=== PATIENT | female | born 1955 | race Caucasian/White ===

== ENCOUNTER → 2018-05-23 | Outpatient (CLI) | payer BC ==
[2018-05-23 18:58] LABS: THYROID STIMULATING HORMONE 1.94 uIU/mL (0.465-4.680)
== END ==
LOC: ZCOL.LAB 18:05
PROVIDERS: Family Medicine
DX: L65.9 Nonscarring hair loss, unspecified (principal)

== ENCOUNTER → 2018-05-23 | Outpatient (CLI) | payer BC | LOC: ZCOL.LAB 19:03 | DX: L65.9 Nonscarring hair loss, unspecified (principal) ==

== ENCOUNTER → 2018-05-26 | Outpatient (CLI) | payer BC ==
[2018-05-26 17:10] LABS: BASO # 0.1 (0.0-0.2); BASO % 2.1 % (0.0-2.0); EOS # 0.3 (0.0-0.7); EOS % 4.8 % (0-4.0); GRAN # 2.3 (1.4-6.5); GRAN % 39.1 % (42.2-75.2); HEMOGLOBIN 12.8 g/dl (12.5-16.0); LYMPH # 2.4 (1.2-3.4); LYMPH % 41.2 % (20.0-51.0); MEAN CELL VOLUME 94 fl (80.0-100.0); MEAN CORPUSCULAR HEMOGLOBIN 31 pg (27.0-31.0); MEAN CORPUSCULAR HGB CONC 33 g/dl (33.0-37.0); MEAN PLATELET VOLUME 11.6 fl (7.4-10.4); MONO # 0.7 (0.1-0.6); MONO % 12.5 % (1.7-9.3); PLATELET COUNT 281 K/mm3 (130-400); RED BLOOD COUNT 4.17 M/mm3 (4.10-5.30); REDCELL DISTRIBUTION WIDTH-CV 12.6 % (11.5-14.5)
[2018-05-26 17:26] LABS: ALBUMIN 3.9 gm/dL (3.5-5.0); BILIRUBIN,TOTAL 0.3 mg/dL (0.0-1.0); CALCIUM 9.3 mg/dL (8.4-10.2); CHOLESTEROL RISK RATIO 2.3; CREATININE, serum 0.66 mg/dL (0.52-1.25); TOTAL PROTEIN 6.4 gm/dL (6.4-8.2)
== END ==
LOC: ZCOL.LAB 16:55
PROVIDERS: Family Medicine
DX: Z13.220 Encounter for screening for lipoid disorders (principal); Z13.0 Encounter for screening for diseases of the blood and blood-forming organs and certain disorders involving the immune mechanism; I10 Essential (primary) hypertension

== ENCOUNTER → 2018-12-15 | Outpatient (CLI) | payer BC | LOC: MC.RAD 14:45 | DX: Z12.31 Encounter for screening mammogram for malignant neoplasm of breast (principal) ==

== ENCOUNTER → 2019-03-13 | Outpatient (CLI) | payer BC | LOC: COL.RAD 03-08 12:30 | DX: Z01.812 Encounter for preprocedural laboratory examination (principal); R51 Headache; R41.3 Other amnesia | CPT/HCPCS: A9585 ==